=== PATIENT | female | born 1990 | race Caucasian/White ===

== ENCOUNTER 2017-02-01 01:52 | Emergency (ER) | payer BC ==
[2017-02-01] MEDS ORDERED: NEOMY SULF/POLYMYX B SULF/HC 100 DROP BTL RIGHT EAR ONE (02:17)
[2017-02-01] MEDS ORDERED: NEOMY SULF/POLYMYX B SULF/HC 100 DROP BTL ONE (02:24)
--- NOTE | 2017-02-01 02:26 | ERNOTE ---
ENT HPI Presenting Symptoms: other - ear pain Time Seen by Provider: 02/01/17 02:13 Source: patient Exam Limitations: no limitations - Immun/Allergies/Home Medications Immunizations: IMMUNIZATION HX Immunizations Up to Date Yes History of Influenza Vaccine No Hx Pneumococcal Vaccination No Allergies/Adverse Reactions: Allergies Allergy/AdvReac Type Severity Reaction Status Date / Time No Known Allergies Allergy Verified 02/01/17 01:55 Home Medications: HOME MEDICATIONS Desogestrel-Ethinyl Estradiol [Enskyce] 1 each PO DAILY 02/01/17 [Last Taken Unknown] Minocycline HCl 50 mg PO DAILY 02/01/17 [Last Taken Unknown] - History of Present Illness Narrative: Right ear pain increasing over the past 2-3 days. Severity: Present: moderate, severe ENT Location: Present: ear (R) Prearrival Treatment: Present: no prearrival treatment Modifying Factors - Improves: Reports: nothing Associated Symptoms - ENT: Denies: ear drainage Review of Systems - Review of Systems Constitutional: Absent: recent illness, fever, chills EYE: Present: no symptoms reported ENT: Present: See HPI. Absent: nose congestion, nasal drainage Respiratory: Absent: cough Cardiology: Present: no symptoms reported Gastrointestinal/Abdominal: Present: no symptoms reported Genitourinary: Present: no symptoms reported Musculoskeletal: Present: no symptoms reported Skin: Present: no symptoms reported Neurological: Present: no symptoms reported Endocrine: Present: no symptoms reported Hematologic/Lymphatic: Present: no symptoms reported Psych: Present: no symptoms reported - Patient's Past Medical History Patient History - Medical: No pertinent hx Patient History - Cardiac/Respiratory: No pertinent hx Patient History - Cancer: No Hx of Cancer Patient History - Surgical Procedures: T & A Patient History - Other: None LMP (females 10-50): 1 month - Family History Mother Family History - Medical: No pertinent hx Family History - Cardiac/Respiratory: No pertinent hx Family History - Cancer: Bone, Breast Maternal Grandmother Family History - Medical: No pertinent hx Family History - Cardiac/Respiratory: No pertinent hx Family History - Cancer: Breast - Social History Living Situations: home Abuse History: No History of abuse Psych History: No pertinent hx Smoking Status: Never smoker Have you smoked in the past 12 months: No Do you dip or chew tobacco: No Alcohol Use: occasionally Drug Use: none - Immunizations Immunizations Up to Date: Yes Hx Pneumococcal Vaccination: No History of Influenza Vaccine: No Physical Exam - Physical Exam General Appearance: Present: wd/wn, alert, mild distress Head Exam: Present: normal inspection, no evidence of injury Eye Exam: Normal inspection: bilateral Ears, Nose, Throat: Present: other - right EAC erythematous and mildly swollen. TM normal Neck: Present: normal inspection, nontender, supple Respiratory: Present: no respiratory distress, no accessory muscle use Back Exam: Present: normal inspection, normal range of motion Neurological Exam: Present: alert, oriented Skin Exam: Present: normal color, warm/dry Lymphatic Exam: Present: no adenopathy ED Progress - Vital Signs Vital Signs: Vital Signs 02/01/17 01:56 Temperature 37.2 C Pulse Rate 75 Respiratory 12 Rate Blood Pressure 110/76 O2 Sat by Pulse 100 Oximetry - Progress/Reassessment Chief Complaint: Earache Departure Clinical Impression: Otitis externa Qualifiers: Otitis externa type: diffuse Chronicity: acute Laterality: right Qualified Code (s): H60.311 - Diffuse otitis externa, right ear - Departure Disposition: Home self-care Condition: Good Instructions: Otitis Externa, [id number] Additional Instructions: keep water out of your ear. be sure to use the drops for 7 days.
[2017-02-01 02:32] VITALS: BP 102/69
[2017-02-01] MEDS ORDERED: KETOROLAC TROMETHAMINE 60 MG/2 ML VIAL IM ONE ×2 (02:34)
== END 2017-02-01 02:36 | disposition home or self-care (01) ==
LOC: ER 01:52
DX: H60.311 Diffuse otitis externa, right ear (principal)

== ENCOUNTER 2019-02-11 00:02 | Inpatient (IN) ==
[2019-02-11] MEDS ORDERED: ONDANSETRON 4 MG TAB.RAPDIS PO PRN (00:13)
[2019-02-11] MEDS ORDERED: LIDOCAINE HCL 50 ML VIAL PERI PRN (00:13)
[2019-02-11] MEDS ORDERED: MISOPROSTOL 100 MCG TABLET VG PRN (00:13)
[2019-02-11] MEDS ORDERED: RINGER'S SOLUTION,LACTATED 1,000 ML IV ONE (00:13)
[2019-02-11] MEDS ORDERED: NALBUPHINE HCL 10 MG/ML AMPUL IV PRN ×2 (00:13)
[2019-02-11] MEDS ORDERED: OXYTOCIN/DEXTROSE 5%-WATER 30 UNITS/500 ML BAG IV ONE ×2 (00:13→17:12)
[2019-02-11] MEDS: RINGER'S SOLUTION,LACTATED 1,000 ML IV PRN ×2 (00:45→09:37)
[2019-02-11 01:35] LABS: Cocaine Ur Negative (NEGATIVE); Urine Barbiturate Negative (NEGATIVE); Urine Benzodiazepines Negative (NEGATIVE); Urine Opiates Negative (NEGATIVE); Urine PCP Negative (NEGATIVE); Urine THC Negative (NEGATIVE)
--- NOTE | 2019-02-11 08:48 | HP ---
Chief Complaint - Chief Complaint Date of Service: 02/11/19 Time of Service: 08:39 Chief Complaint: Patient presented for IOL but was in labor History of Present Illness: 28 year old at 40w 5d who presented for an IOL due to post due date. She presented and was stella on her own and thus did not need an induction agent. She has made cervical change from 2 to 3 to 4 cm. She denies vb or lof. Fetus is active. Medical History (Updated 02/07/19 @ 09:28 by Jessica Mahan MD) Abnormal Pap smear of cervix Onset Date: ~2016 Surgical History: Surgical History (Updated 07/03/18 @ 09:23 by Maddi Carty RN) H/O LEEP Onset Date: ~2016 H/O adenoidectomy Onset Date: ~1995 H/O myringotomy Onset Date: ~1995 Hx of tonsillectomy Onset Date: ~1995 right breast cystectomy Onset Date: ~2013 Family History: Family History (Updated 02/11/19 @ 01:45 by Bri Campoverde RN) Mother Cancer breast cancer age 39, bone cancer-presently Father Diverticulosis Grandmother Cancer breast cancer, lung cancer Social History: (Last Updated 02/11/19 @ 02:30 by Bri Campoverde RN) Social History: adopted: No Marital status: household members: spouse number of children: 0 current occupational status: employed current occupation: [employer] Highest education level completed: Associate degree: occupat Service: No Tobacco: Smoking Status: Never smoker Alcohol: alcohol intake: former details: stopped with Substance Use: substance use type: does not use Dietary Habits: caffeine: No Review Of Systems (GEN) - Review of Systems Generalized/Overall Review: Present: No Symptoms Reported Misc: All systems neg except as marked Immunizations: IMMUNIZATION HX Immunizations Up to Date Yes History of Influenza Vaccine No Hx Pneumococcal Vaccination No Allergies/Adverse Reactions: Allergies Allergy/AdvReac Type Severity Reaction Status Date / Time No Known Allergies Allergy Verified 02/11/19 00:14 Home Medications: HOME MEDICATIONS vitamin,calcium,[id number] acid tablet 1 tab PO DAILY 07/03/18 [Last Taken 02/10/19] breast pump See Dose Instructions .ROUTE .MEDSUPPLY #1 ea 02/05/19 [Last Taken Unknown] Exam - Exam Vital Signs: Vital Signs - Last Taken Temp 36.8 C 02/11/19 00:59 Pulse 70 02/11/19 00:59 Resp 18 02/11/19 00:59 BP 117/55 02/11/19 00:59 Pulse Ox 97 02/11/19 00:59 Constitutional: Present: Alert, Oriented x3, Cooperative, No distress Respiratory: Present: lungs clear, normal breath sounds Cardiovascular/Chest: Present: regular rate, rhythm, no murmur Abdomen: Present: soft, nontender, nondistended /Rectal: Present: Other - 4/100/-1 AROM for clear fluid Extremity: Present: non-tender, no calf tenderness Skin Exam: Present: normal color, warm/dry, no cyanosis Appearance: Present: appropriate appearance Eye contact: Present: cooperative Thoughts: Present: normal thought pattern Diagnostic Studies: Laboratory Results Negative (NEGATIVE) 02/11/19 00:13 Negative (NEGATIVE) 02/11/19 00:13 Ur Phencyclidine Scrn Negative (NEGATIVE) 02/11/19 00:13 Urine Amphetamine Negative (NEGATIVE) 02/11/19 00:13 U Benzodiazepines Scrn Negative (NEGATIVE) 02/11/19 00:13 Negative (NEGATIVE) 02/11/19 00:13 Negative (NEGATIVE) 02/11/19 00:13 Blood Type O Positive 02/11/19 00:30 Antibody Screen Negative 02/11/19 00:30 Assessment/Plan - Narrative Narrative: 28 year old at 40w 5d The patient presented for IOL due to post due date but is making cervical change on her own. AROM for augmentation of labor. GBS negative: prophylaxis not indicated Reassess cervical exam in 4 hours and if no change start pitocin
[2019-02-11] MEDS ORDERED: DEXTROSE 5%-LACTATED RINGERS 1,000 ML IV PRN (14:50)
[2019-02-11] MEDS ORDERED: ceFAZolin SODIUM/DEXTROSE,ISO 2 GM/50 ML BAG IV ONE (16:45)
--- NOTE | 2019-02-11 17:11 | OR ---
Operative Report - Dictated Report Narrative: Date of delivery: 02/11/2019 Time of delivery: 1608 Gender: female weight: 2930 grams APGARS: 8/9 Procedure: VAVD Description of the procedure: The patient is a 28 year old at 40w 5d who presented to labor and delivery for a medical induction of labor due to post due date. She progressed to complete dilation. Preoperative diagnosis for VAVD: suspicion of immediate compromise The heart rate was nonreassuring with heart tones as low as in the 50s Patient counseling: the indications for the vacuum were discussed, the patient did not have any questions as she was in a lot of pain due to no epidural. She did consent to operative delivery and the alternative to perform a delivery was discussed with the patient. Examination findings: EFW: 3200 grams station: +5 Position of the head: SHAINA The cervix was completely dilated and effaced. The maternal- size appropriate for application. The bladder was already emptied. Cup placement The flexion point was identified The cup choice was appropriate for the application site The maternal tissue was excluded from the vacuum cup Details of the procedure Station at application: +5 Position: SHAINA Anesthesia: none Episiotomy: no 2nd degree perineal laceration repaired with 2-0 vicryl in the standard fashion. A mushroom vacuum was used Total time of vacuum application: 35 seconds Maximum vacuum achieved: 50 cm Hg Number of pulls: 1 Number of involuntary releases: 0 Rotation of the head: none Extraction successful: yes She delivered a viable female infant in SHAINA presentation. A tight nuchal cord was noted and it was cut at the perineum. The shoulders delivered without any difficulty followed by the rest of the . Cord blood gases were not collected Amniotic fluid was clear The umbilical cord avulsed as it was thin. I repaired the laceration to see if the placenta would come spontaneously. I was able to put traction on the cord beyond the area of avulsion but then the entire placenta did not come. I removed a second piece of placenta after the initial removal. I then performed a bedside ultrasound which demonstrated retained products. I went in three additional times and got the remaining products of conception. Ancef 2 grams IV were given due to manual uterine exploration for endometritis prophylaxis. EBL: 300 mL There was no shoulder dystocia or injury. Complications: none History for MU Definition: * The number of deliveries resulting in a live the patient experienced prior to current hospitalization * The previous delivery of live twins or any live multiple gestation is considered one live event. *If primagravida or nulliparous is documented select zero for the number of previous live births. Live Events: 0
[2019-02-11] MEDS ORDERED: HYDROCORTISONE 30 APPL TUBE TP PRN (17:12)
[2019-02-11] MEDS ORDERED: GLYCERIN/WITCH HAZEL LEAF 40 APPL BOX TP PRN (17:12)
[2019-02-11] MEDS ORDERED: diphenhydrAMINE HCL 25 MG CAPSULE PO PRN (17:12)
[2019-02-11] MEDS ORDERED: BISACODYL 10 MG SUPP.RECT RC PRN (17:12)
[2019-02-11] MEDS ORDERED: SENNOSIDES 8.6 MG TABLET PO PRN (17:12)
[2019-02-11] MEDS ORDERED: oxyCODONE HCL/ACETAMINOPHEN 1 TAB TABLET PO PRN (17:12)
[2019-02-11] MEDS ORDERED: BENZOCAINE/MENTHOL 81 SPRAY CAN TP PRN (17:12)
[2019-02-11] MEDS: DOCUSATE SODIUM 100 MG CAPSULE PO SCH (21:05)
[2019-02-11] MEDS: IBUPROFEN 800 MG TABLET PO PRN (21:05)
[2019-02-12] MEDS: IBUPROFEN 800 MG TABLET PO PRN ×4 (02:57→22:47)
--- NOTE | 2019-02-12 08:01 | PN ---
Subjective - Date and Time Seen Date: 02/12/19 Time: 07:59 Subjective Narrative: Patient feels a little sore Objective Objective Narrative: See vital signs - Review of Systems Generalized/Overall Review: Reports: No Symptoms Reported Misc: All systems neg except as marked - Vitals Vitals: Last Vital Signs Temp 36.5 C 02/11/19 17:45 Pulse 78 02/12/19 04:20 Resp 16 02/12/19 04:20 BP 106/68 02/12/19 04:20 Pulse Ox 98 02/12/19 04:20 - Exam Constitutional: Present: Alert, Oriented x3, Cooperative, No distress Abdomen: Present: soft, nontender, nondistended - fundus is firm Extremity: Present: non-tender, no calf tenderness Skin Exam: Present: normal color, warm/dry, no cyanosis Appearance: Present: appropriate appearance Eye contact: Present: cooperative Thoughts: Present: normal thought pattern Assessment/Plan Plan Narrative: PPD 1 s/p VAVD Doing well Discussed with the patient and her spouse that given her retained placenta will have to watch her bleeding closely after delivery. If her bleeding persists for more than 6 weeks after delivery will consider an additional procedure: hysteroscopy. The patient verbalizes understanding Discharge tomorrow
[2019-02-12] MEDS: DOCUSATE SODIUM 100 MG CAPSULE PO SCH ×2 (09:33→20:36)
[2019-02-13] MEDS: oxyCODONE HCL/ACETAMINOPHEN 1 TAB TABLET PO PRN ×2 (06:48→10:17)
[2019-02-13] MEDS: DOCUSATE SODIUM 100 MG CAPSULE PO SCH ×2 (06:59→09:19)
[2019-02-13] MEDS: IBUPROFEN 800 MG TABLET PO PRN ×2 (06:59→13:34)
[2019-02-13 07:14] VITALS: BP 105/63
--- NOTE | 2019-02-13 08:11 | PN ---
Subjective - Date and Time Seen Date: 02/13/19 Time: 08:09 Subjective Narrative: Patient feels a little sore Objective Objective Narrative: See vital signs - Review of Systems Generalized/Overall Review: Reports: No Symptoms Reported Misc: All systems neg except as marked - Vitals Vitals: Last Vital Signs Temp 36.6 C 02/13/19 06:55 Pulse 76 02/13/19 06:55 Resp 18 02/13/19 06:55 BP 105/63 02/13/19 06:55 Pulse Ox 100 02/13/19 06:55 - Exam Constitutional: Present: Alert, Oriented x3, Cooperative, No distress Abdomen: Present: soft, nontender, nondistended - fundus is firm Extremity: Present: non-tender, no calf tenderness Skin Exam: Present: normal color, warm/dry, no cyanosis Appearance: Present: appropriate appearance Eye contact: Present: cooperative Thoughts: Present: normal thought pattern Assessment/Plan Plan Narrative: PPD 2 s/p VAVD Doing well Discharge today Follow-up in 4 weeks
== END 2019-02-13 14:20 | disposition home or self-care (01) | DRG 807 ==
LOC: OB 00:02
PROVIDERS: ADMIT Obstetrics & Gynecology; ATTEND Obstetrics & Gynecology
CPT/HCPCS: 59025; 80307; 86850; 88307